=== PATIENT | male | born 2000 | race Caucasian/White ===

== ENCOUNTER 2020-08-28 12:34 | Inpatient (IN) | payer OTHER ==
[~2020-08-28] VITALS: Ht 180.3 cm; Wt 88.6 kg
[2020-08-28 13:28] LABS: HEMATOCRIT 42.9 % (42.0-52.0); HEMOGLOBIN 13.3 g/dl (13.5-17.5); MEAN CORPUSCULAR HEMOGLOBIN 25.7 pg (27.0-33.0); PLATELET COUNT, AUTOMATED 287 10^3/uL (150-450); RED BLOOD COUNT 5.17 10^6/uL (4.30-6.10); WHITE BLOOD COUNT 9.4 10^3/uL (4.0-10.0)
[2020-08-28 14:05] LABS: AMPHETAMINES LEVEL URINE NEGATIVE (NEGATIVE); BARBITURATES URINE NEGATIVE (NEGATIVE); BENZODIAZEPINES URINE NEGATIVE (NEGATIVE); CANNABINOIDS URINE NEGATIVE (NEGATIVE); COCAINE METABOLITE URINE NEGATIVE (NEGATIVE); METHADONE URINE NEGATIVE (NEGATIVE); OPIATES URINE NEGATIVE (NEGATIVE); PHENCYCLIDINE URINE NEGATIVE (NEGATIVE)
[2020-08-28 14:06] LABS: ACETAMINOPHEN LEVEL < 2.0 UG/ML (10.0-30.0); ALBUMIN 4.1 GM/DL (3.2-5.2); ALT/SGPT 15 U/L (12-78); BILIRUBIN,DIRECT 0.1 MG/DL (0.0-0.2); BILIRUBIN,TOTAL 0.4 MG/DL (0.2-1.0); BLOOD UREA NITROGEN 8 MG/DL (7-18); CALCIUM LEVEL 9.1 MG/DL (8.5-10.1); CARBON DIOXIDE LEVEL 30 MEQ/L (21-32); CHLORIDE LEVEL 107 MEQ/L (98-107); CREATININE FOR GFR 0.97 MG/DL (0.70-1.30); ETHYL ALCOHOL (ETHANOL) < 0.003 % (0.000-0.010); GLUCOSE, FASTING 101 MG/DL (70-100); POTASSIUM SERUM 4.1 MEQ/L (3.5-5.1); SALICYLATE LEVEL < 1.7 MG/DL (5.0-30.0); SODIUM LEVEL 142 MEQ/L (136-145); THYROID STIMULATING HORMONE 0.269 uIU/ML (0.463-3.98); TOTAL PROTEIN 7.3 GM/DL (6.4-8.2)
[2020-08-29 16:14] LABS: RSV AMPLIFICATION NEGATIVE (NEGATIVE)
[2020-08-29] MEDS ORDERED: MAALOX 30 ML SUSP *UDC PO PRN (17:20)
[2020-08-29] MEDS ORDERED: MOM 30ML SUSPENSION UDC PO PRN (17:20)
[2020-08-29] MEDS ORDERED: OLANZapine ORAL DISINTEGRATING TAB 5MG PO PRN (17:20)
[2020-08-29] MEDS ORDERED: traZODone 50 MG TAB PO PRN (17:20)
[2020-08-30] MEDS ORDERED: UNRESOLVED CLARIFICATION ENTRY XX SCH (00:01)
[2020-08-30 01:41] VITALS: BP 126/80
--- NOTE | 2020-08-30 12:43 | MHHPEPDOC ---
General Date Of Admission: Aug 29, 2020 Legal Status: 9.39 Chief Complaint "I was very upset and angry when I saw the instagram[ picture that she posted History of Present Illness HISTORY OF THE PRESENT ILLNESS: Patient is a 19 -year-old , male, who [no previous psychiatric history brought the emergency room by his friend after he expressed vague suicidal thoughts and made the superficial cuts on his arm with a razor. Patient states that that he recently broke up with his fiance of 4 years after finding out that she was treating. On Saturday night. He was on the phone and saw a picture that he posted with another mariaa and became very angry and upset and depressed]., He was feeling devastated and was in extreme emotional turmoil and had the thoughts of plan suicide briefly and then scratched his arm with a razor and then called his friend and was brought to the emergency room. He strongly denies any suicidal plan or intent and stated that he is feeling much better after thinking it over the past several days and made peace with the instant and is going to go on with his life and strongly denies any suicidal thoughts anymore. Is willing to seek [place] and doesn't feel he needs any psychiatric medications. Psychiatric Review of Systems Depression (2 or more weeks): depressed mood, feelings of worthlesness, suicidal thoughts Psychosis: denies PTSD: denies Anxiety: situational anxiety, stressor related anxiety Past Psychiatric History Previous Psychiatric Diagnosis: [None]. Previous Psychiatric Admissions: Multiple prior treatment. Suicide Attempts: [No prior history]. Psychiatric Follow-up: [None]. Psychiatric medications: None . Past Medical History Medical Problems No medical history Head Injury: No Seizures: No Hospitalizations: No Surgeries: No Family Medical/Psychiatric HX Medical Problems Noncontributory Psychiatric Disorders: No Addiction: No Suicide Attemps/Completions: No Addiction History denies Social History Childhood: [Born in [place]. Parents are and he is close to his father]. Abuse/Trauma:[No history of abuse]. Current Living Situation: [Lives with a roommate]. Education: [High school]. 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 Social Support: [Close friend]. Legal: [None]. Marital: [Was engaged but broke up]. Mental Status Examination General Appearance: well groomed, appears stated age Build: average Demeanor: average Eye Contact: average Activity: average Behavior: cooperative Speech: clear, spontaneous, normal volume Mood: depressed, anxious Mood Was very upset and depressed, but is also about that than feeling better Affect: full, appropriate, congruent Thought Process: logical/linear Thought Content (Delusions): none reported, denies SI, HI, AVH Thought Content (Other): none reported Thought Content (Aggressive): none reported Perception (Hallucinations): none reported Perception (Other): none reported Cognition (Impairment of): none reported Cognition(Intelligence Est.): average Oriented: Awake, Alert, Oriented times three Insight: good Judgment: Fair Psychosis: Denies Diagnoses Moderate depressive episode with the breakup of his engagement, but no serious depressive symptoms and not suicidal A-FIB/CHADSVASC A-FIB History Current/History of A-Fib/PAF?: No Current PO Anticoag Therapy: No Age/Risk Factor Scoring CHADSVASC: CHADSVASC Response (Comments) Value Gender Risk Factor Male 0 Hx of CHF No 0 Hx of HTN No 0 Hx of Stroke/TIA/or VTE No 0 Hx of Diabetes No 0 Hx of Vascular Disease No 0 Total 0 Treatment Treatment ordered: NONE Assessment Does not appear to be suicidal and is willing to accept counseling service Initial Treatment Plan 1. Patient was admitted on a [9.39] status. 2. Complete history was obtained. 3. With patients permission, family will be contacted and database will be expanded. 4. Patients medication regimen will be reviewed and changed accordingly. 5. Patient will be provided with protected environment. 6. Patient will be treated with individual, group, and milieu therapies. 7. Patient will receive supportive psych-education. 8. Discharge planning will commence immediately. 9. Outpatient follow-up treatment will be strongly recommended. 10. The initial treatment plan will focus initially on: * Depression. * Risk for suicide. ESTIMATED LENGTH OF STAY: [2]-[3] DAYS. TIME SPENT COUNSELING AND COORDINATING INITIAL CARE: [45] minutes. Tobacco Cessation Screen If Patient is a Smoker Nonsmoker N/A-No Antipsychotics Vital Signs Vital Signs Date Time Temp Pulse Resp B/P (MAP) Pulse Ox O2 Delivery O2 Flow Rate FiO2 08/30/20 01:41 98.7 55 20 126/80 (95) 97 Room Air Laboratory Data 24H Labs Laboratory Tests 2 08/29/20 14:44: Coronavirus (COVID-19)(PCR) NEGATIVE, Influenza Type A (RT-PCR) NEGATIVE, Influenza Type B (RT-PCR) NEGATIVE, Respiratory Syncytial Virus (PCR) NEGATIVE Medications No Active Prescriptions or Reported Meds Allergies Coded Allergies: SEASONAL ALLERGIES (Verified Allergy, Unknown, 08/30/20) KERRI PRATT M.D. Aug 30, 2020 12:43
[2020-08-30 16:07] VITALS: BP 129/70
[2020-08-30 17:50] LABS: FREE THYROXINE INDEX 2.5 % (1.4-3.8); THYROID STIMULATING HORMONE 0.475 uIU/ML (0.463-3.98); THYROXINE (T4) 8.1 UG/DL (6.0-11.6)
--- NOTE | 2020-08-30 19:48 | HPEPDOC ---
General Date of Admission Aug 29, 2020 at 17:17 Date of Service: Aug 30, 2020 Chief Complaint The patient is a 19-year-old male admitted with a reason for visit of Unspecified Mood Do. Source: Patient Exam Limitations: No limitations History of Present Illness Patient is 19 years old male without significant past medical history presented hospital with suicidal ideation. . Patient states that that he recently broke up with his fiance of 4 years and he developed suicidal ideation. Patient denied fever, chills, nausea, diarrhea or dysuria. Home Medications No Active Prescriptions or Reported Meds Allergies Coded Allergies: SEASONAL ALLERGIES (Verified Allergy, Unknown, 08/30/20) Past Medical History Medical History No significant past medical history Social History * Smoker: other (Vape) Drugs: denies A-FIB/CHADSVASC A-FIB History Current/History of A-Fib/PAF?: No Current PO Anticoag Therapy: No Age/Risk Factor Scoring CHADSVASC: CHADSVASC Response (Comments) Value Gender Risk Factor Male 0 Hx of CHF No 0 Hx of HTN No 0 Hx of Stroke/TIA/or VTE No 0 Hx of Diabetes No 0 Hx of Vascular Disease No 0 Total 0 Review of Systems Constitutional: Denies: Chills, Fever Eyes: Denies: Pain ENT: Denies: Head Aches Skin: Denies: Rash Pulmonary: Denies: Dyspnea Cardiovascular: Denies: Chest Pain Gastrointestinal: Denies: Nausea Genitourinary: Denies: Dysuria Hematologic: Denies: Bruising Endocrine: Denies: Polydipsia Musculoskeletal: Denies: Neck Pain Neurological: Denies: Weakness Psych: Reports: Depression Physical Examination General Exam: Positive: Alert, Cooperative Eye Exam: Positive: PERRLA ENT Exam: Positive: Atraumatic Neck Exam: Positive: Supple; Negative: JVD Chest Exam: Positive: Clear to auscultation Heart Exam: Positive: Rate Normal Telemetry: Positive: No significant arrhythmia Abdomen Exam: Positive: Normal bowel sounds Extremity Exam: Negative: Clubbing Skin Exam: Positive: Nl turgor and temperature Neuro Exam: Positive: Normal Gait Psych Exam: Positive: Oriented x 3 Vital Signs Vital Signs Date Time Temp Pulse Resp B/P (MAP) Pulse Ox O2 Delivery O2 Flow Rate FiO2 08/30/20 16:07 97.5 70 16 129/70 (89) 99 Room Air Laboratory Data Labs 24H Laboratory Tests 2 08/30/20 16:25: Thyroid Stimulating Hormone (TSH) 0.475, Free Thyroxine Index 2.5, Thyroxine (T4) 8.1, Triiodothyronine (T3) Uptake 31L Assessment/Plan Patient is 19 years old male without significant past medical history presented hospital with suicidal ideation. . Patient states that that he recently broke up with his fiance of 4 years and he developed suicidal ideation. Patient denied fever, chills, nausea, diarrhea or dysuria. Problems (1) Depression with suicidal ideation Status: Acute Problem Text: Deferred treatment to psych team Plan / VTE VTE Prophylaxis Ordered?: No VTE Exclusion Mechanical Proph: Low Risk for VTE JOSEMANUEL HER DO Aug 30, 2020 19:48
[2020-08-31 06:52] VITALS: BP 123/60
--- NOTE | 2020-08-31 11:08 | MHDSPDOC ---
[facility] Discharge Summary Discharge Summary DATE OF ADMISSION: Aug 29, 2020 at 17:17 DATE OF DISCHARGE: 08/31/2020 DISCHARGE DIAGNOSES: 1. . Adjustment disorder with depression 2. . REASON FOR ADMISSION: Patient was upset and depressed after his ex fiance sent a phone message showing her and her boyfriend. Patient had a brief emotional outburst and made a superficial scratch with a razor, but denies any suicidal plan or intent CONSULTANTS INVOLVED: , None TREATMENT AND PROGRESS ON THE UNIT : Patient was seen for supportive therapy and lethality evaluation. Patient denies any ongoing depression. Denies any history of a suicidal attempt and states that he fully accepts his breakup and does not have any more thoughts of suicide and feeling safe and stable.. HOSPITAL COURSE: Patient remained in good control. Didn't show any more suicidal or self mutilating behavior. He does not feel he needs any psychotropic medicine but [place] DISCHARGE ASSESSMENT: , Stable, no suicide MENTAL STATUS EXAMINATION ON DISCHARGE: Patient is a 19 -year old male, who is , cooperative and pleasant. Speech is good. Language skills are good. Thought processes including: , Relevant and organized. Thought content: No depressed mood. No suicidal thoughts. Abstract reasoning, and computation: [Good Description of associations: Well-organized. Description of abnormal or psychotic thoughts: none. Judgment: , Fair. Insight: Good . Orientation to , well-oriented. Recent and remote memory: Good. Attention span and concentration: Good. Language: . Fund of knowledge: Average. Mood: Euthymic. Affect: , Appropriate. MEDICATIONS ON DISCHARGE: - for . More medication. Given - for . - for . PLAN/FOLLOWUP ARRANGEMENTS: [place] [facility] [place]. The amount of time spent in the coordination of care for this patient was approximately 35 minutes. ETOH/Disorder Med Rx ETOH/DRUG DISORDER RX: N/A Vital Signs/I&Os Vital Signs Date Time Temp Pulse Resp B/P (MAP) Pulse Ox O2 Delivery O2 Flow Rate FiO2 08/31/20 06:52 99.6 84 20 123/60 (81) 97 Room Air Laboratory Data Labs 24H Laboratory Tests 2 08/30/20 16:25: Thyroid Stimulating Hormone (TSH) 0.475, Free Thyroxine Index 2.5, Thyroxine (T4) 8.1, Triiodothyronine (T3) Uptake 31L Medications No Active Prescriptions or Reported Meds Allergies Coded Allergies: SEASONAL ALLERGIES (Verified Allergy, Unknown, 08/30/20) KERRI PRATT M.D. Aug 31, 2020 11:08
== END 2020-08-31 11:11 | disposition home or self-care (01) | DRG 881 ==
LOC: M ED 12:34 → CANBEDREQ 08-29 16:16 → M ED INP 08-29 17:17 → M PSY 08-30
PROVIDERS: ADMIT Psychiatry & Neurology Psychiatry; ATTEND Psychiatry & Neurology Psychiatry
DX: F43.21 Adjustment disorder with depressed mood (principal); R45.851 Suicidal ideations

== ENCOUNTER 2022-04-19 23:08 | Emergency (ER) | payer OTHER ==
[~2022-04-19] VITALS: Ht 182.9 cm; Wt 109.6 kg
[2022-04-19 23:15] VITALS: BP 155/81
[2022-04-19] MEDS ORDERED: PSEU30TA21 PO (23:23)
[2022-04-19] MEDS ORDERED: ACET-683 PO (23:23)
[2022-04-20] MEDS ORDERED: ACETAMINOPHEN 500 MG TAB PO ONE (00:35)
[2022-04-20] MEDS ORDERED: BENZONATATE 100MG CAPSULE PO ONE (00:35)
[2022-04-20] MEDS ORDERED: LIDOCAINE VISCOUS 2% SOLN 15ML UDC SS ONE (00:35)
[2022-04-20] MEDS ORDERED: NS 1,000 ML IV ONE (00:35)
[2022-04-20] MEDS ORDERED: KETOROLAC 30 MG/ML 1ML VIAL IV ONE (00:35)
[2022-04-20 01:03] LABS: BASO % 0.5 % (0.0-1.0); EOS # 0.1 10^3/uL (0.0-0.5); EOS % 0.8 % (0.0-3.0); HEMATOCRIT 40.7 % (42.0-52.0); HEMOGLOBIN 12.9 g/dl (13.5-17.5); LYMPH # 0.8 10^3/uL (1.5-5.0); LYMPH % 9.2 % (24.0-44.0); MEAN CORPUSCULAR HEMOGLOBIN 25.8 pg (27.0-33.0); MEAN CORPUSCULAR HGB CONC 31.7 g/dl (32.0-36.5); MEAN CORPUSCULAR VOLUME 81.4 fl (80.0-96.0); MONO % 11.5 % (2.0-8.0); NEUTROPHILS # 6.8 10^3/uL (1.5-8.5); NEUTROPHILS % 77.7 % (36.0-66.0); PLATELET COUNT, AUTOMATED 241 10^3/uL (150-450); WHITE BLOOD COUNT 8.8 10^3/uL (4.0-10.0)
[2022-04-20 01:17] LABS: ERYTHROCYTE SEDIMENTATION RATE 5 mm/hr (0-15)
[2022-04-20 01:26] LABS: BLOOD UREA NITROGEN 14 MG/DL (9-23); CALCIUM LEVEL 8.6 MG/DL (8.5-10.1); CARBON DIOXIDE LEVEL 28 MMOL/L (20-31); CHLORIDE LEVEL 105 MMOL/L (98-107); CREATININE FOR GFR 1.06 MG/DL (0.70-1.30); GLOMERULAR FILTRATION RATE > 60.0 (>60); GLUCOSE, FASTING 94 MG/DL (60-100); SODIUM LEVEL 141 MMOL/L (136-145)
[2022-04-20 01:27] LABS: MONO SCRN NEGATIVE (NEGATIVE)
[2022-04-20 01:34] LABS: RSV AMPLIFICATION NEGATIVE (NEGATIVE)
[2022-04-20] MEDS ORDERED: MUCI1TAB16 PO (01:36)
[2022-04-20] MEDS ORDERED: BENZ200C70 PO (01:36)
== END 2022-04-20 02:02 | disposition home or self-care (01) ==
LOC: M ED 23:08
DX: U07.1 COVID-19 (principal); Z88.0 Allergy status to penicillin; Z88.1 Allergy status to other antibiotic agents; Z79.811 Long term (current) use of aromatase inhibitors; Z79.899 Other long term (current) drug therapy
CPT/HCPCS: 71046; 80048; 83605; 85025; 85652; 86140; 86308; 87428; 87631; 87880; 96374; 99284; J1885